=== PATIENT | female | born 1990 | race Hispanic/Latino ===

== ENCOUNTER 2018-12-08 10:38 | Emergency (ER) | payer SELFPAY ==
[~2018-12-08] VITALS: Ht 162.6 cm; Wt 81.6 kg
[2018-12-08] MEDS ORDERED: ONDANSETRON HCL INJ 2MG/ML 2ML 2 MG/ML VIAL IV STA (11:05)
[2018-12-08] MEDS ORDERED: ONDANSETRON ODT8 MG PO (11:09)
[2018-12-08] MEDS ORDERED: SODIUM CHLORIDE 0.9% 1000ML 1,000 ML IV SCH (11:15)
[2018-12-08] MEDS ORDERED: MECLIZINE HCL12.5 MG PO (11:17)
[2018-12-08] MEDS ORDERED: ONDANSETRON HCL INJ 2MG/ML 2ML 2 MG/ML VIAL ONE (11:42)
--- NOTE | 2018-12-08 12:03 | Diagnostic Imaging Report ---
CT [facility] HISTORY: Headache COMPARISON: None. TECHNIQUE: Noncontrast axial scans were obtained from skull base to the vertex. Coronal and sagittal reconstructions obtained from the axial data. One or more of the following dose reduction techniques were used: Automated exposure control, adjustment of the mA and/or kV according to patient size, and/or utilization of iterative reconstruction technique. DISCUSSION: Scalp/Skull: Unremarkable. Brain sulci: Appropriate for patient's age. Ventricles: Normal in size and configuration. No hydrocephalus. Extra-axial spaces: No masses or fluid collections. Parenchyma: Suspected pineal cyst measures up to 7 mm in size. No disc mass, hemorrhage, or large vascular territory acute infarct. Dural sinuses: No abnormal densities. Sellar/Suprasellar region: Intact. Skull base: Intact. Incidental findings: None. IMPRESSION: 1. No acute intracranial abnormalities. 2. Incidental subcentimeter pineal cyst. Signed by: Dr. Noam Javier M.D. on 12/08/2018 12:00 PM
[2018-12-08 12:57] VITALS: BP 122/78
== END 2018-12-08 13:03 | disposition home or self-care (01) ==
LOC: FSED 10:38
DX: R42 Dizziness and giddiness (principal); R11.0 Nausea
CPT/HCPCS: 70450; 80053; 81003; 81025; 85025; 93005; 99283; J2405

== ENCOUNTER 2024-07-22 11:50 | Emergency (ER) | payer OTHER ==
[~2024-07-22] VITALS: Ht 162.6 cm; Wt 94.3 kg
[~2024-07-22 11:50] MED LIST: MECLIZINE HCL12.5 MG PO; ONDANSETRON ODT8 MG PO
[2024-07-22 11:53] VITALS: PULSE 77; RESP 19; TEMP 97.9
[2024-07-22 16:45] VITALS: BP 121/63; PULSE 88; RESP 18; TEMP 98.2; O2SAT 99
== END 2024-07-22 16:47 | disposition home or self-care (01) ==
LOC: FSED 11:56
DX: R10.13 Epigastric pain (principal); K80.20 Calculus of gallbladder without cholecystitis without obstruction; K21.9 Gastro-esophageal reflux disease without esophagitis; K44.9 Diaphragmatic hernia without obstruction or gangrene
CPT/HCPCS: 76705; 80053; 84484; 93005; 99284